=== PATIENT | male | born 1970 | race Caucasian/White ===

== ENCOUNTER 2023-12-25 18:37 | Emergency (ER) | payer MEDICAID ==
[~2023-12-25] VITALS: Ht 177.8 cm; Wt 95.5 kg
[2023-12-25 20:28] VITALS: BP 136/88; PULSE 107; TEMP 97.4; O2SAT 97
[2023-12-25 20:36] VITALS: RESP 16
[2023-12-26] MEDS ORDERED: CYCL-1 PO (16:40)
[2023-12-26] MEDS ORDERED: IBUP-1984 PO (16:40)
== END 2023-12-25 21:19 | disposition home or self-care (01) ==
LOC: ER 18:38
DX: S80.211A Abrasion, right knee, initial encounter (principal); M25.561 Pain in right knee; F12.90 Cannabis use, unspecified, uncomplicated; Z88.1 Allergy status to other antibiotic agents; V49.88XA Car occupant (driver) (passenger) injured in other specified transport accidents, initial encounter; Y93.89 Activity, other specified; Y92.89 Other specified places as the place of occurrence of the external cause; Y99.8 Other external cause status
CPT/HCPCS: 73564; 99283

== ENCOUNTER 2023-12-26 15:29 | Emergency (ER) | payer OTHER, MEDICAID ==
[~2023-12-26] VITALS: Ht 177.8 cm; Wt 80.7 kg
[2023-12-26 15:40] VITALS: TEMP 97.8
[2023-12-26] MEDS ORDERED: IBUP-1984 PO (16:40)
[2023-12-26] MEDS ORDERED: CYCL-1 PO (16:40)
[2023-12-26] MEDS: ketorolac tromethamine 15mg/ml inj. IM ONE (16:41)
[2023-12-26] MEDS: cyclobenzaprine 10mg tablet PO ONE (16:42)
[2023-12-26 16:51] VITALS: BP 133/74; PULSE 68; RESP 18; O2SAT 98
== END 2023-12-26 16:53 | disposition home or self-care (01) ==
LOC: ER 15:30
DX: M54.50 Low back pain, unspecified (principal); F12.90 Cannabis use, unspecified, uncomplicated; Z88.1 Allergy status to other antibiotic agents; Z79.1 Long term (current) use of non-steroidal anti-inflammatories (NSAID); Z79.899 Other long term (current) drug therapy; V89.2XXA Person injured in unspecified motor-vehicle accident, traffic, initial encounter; Y93.89 Activity, other specified; Y92.89 Other specified places as the place of occurrence of the external cause; Y99.8 Other external cause status
CPT/HCPCS: 96372; 99283; J1885

== ENCOUNTER 2024-01-30 12:11 | Emergency (ER) | payer MEDICAID ==
[~2024-01-30] VITALS: Ht 180.3 cm; Wt 91.0 kg
[~2024-01-30 12:11] MED LIST: CYCL-1 PO
[2024-01-30] MEDS ORDERED: ACYC-129 PO (14:31)
[2024-01-30] MEDS: acyclovir 200 MG capsule PO ONE (15:05)
[2024-01-30 15:09] VITALS: BP 134/78; PULSE 78; RESP 16; TEMP 97.9; O2SAT 97
== END 2024-01-30 15:10 | disposition home or self-care (01) ==
LOC: ER 12:11
DX: B02.8 Zoster with other complications (principal); F12.90 Cannabis use, unspecified, uncomplicated; Z88.1 Allergy status to other antibiotic agents; Z79.899 Other long term (current) drug therapy; Z72.89 Other problems related to lifestyle
CPT/HCPCS: 99283

== ENCOUNTER 2024-04-20 20:48 | Emergency (ER) | payer MEDICAID ==
[~2024-04-20] VITALS: Ht 177.8 cm; Wt 98.5 kg
[2024-04-20 21:37] LABS: BASOPHILS % (AUTO) 0.4 % (0-1); EOSINOPHILS # (AUTO) 0.1 X10'3 (0-0.9); EOSINOPHILS % (AUTO) 1.4 % (0-6); HEMATOCRIT 41.5 % (42.0-52.0); HEMOGLOBIN 13.8 g/dl (14.0-17.9); LYMPHOCYTES # (AUTO) 1.7 X10'3 (1.1-4.8); MEAN CORPUSCULAR HGB CONC 33.2 g/dL (33.0-36.5); MEAN CORPUSCULAR VOLUME 90.4 FL (78-98); MEAN PLATELET VOLUME 7.4 FL (7.4-10.4); MONOCYTES # (AUTO) 0.6 X10'3 (0-0.9); MONOCYTES % (AUTO) 7.8 % (2-12); NEUTROPHILS # (AUTO) 5.8 X10'3 (1.8-7.7); NEUTROPHILS % (AUTO) 70.4 % (42-75); PLATELET COUNT 284 X10'3 (140-440); RED BLOOD COUNT 4.59 X10'6 (4.70-6.10); RED CELL DISTRIBUTION WIDTH 13.3 % (11.5-14.5); WHITE BLOOD COUNT 8.3 X10'3 (4.5-11.0)
[2024-04-20] MEDS: sulfamethoxazole/trimethoprim DS (800/160mg) tablet PO ONE (21:45)
[2024-04-20] MEDS: CefTRIAXone 1000mg IM Kit (w/lidocaine diluent) IM ONE (21:45)
[2024-04-20 21:46] LABS: ALBUMIN 3.8 G/DL (3.4-5.0); ANION GAP 7 (8-16); BLOOD UREA NITROGEN 19 MG/DL (7-18); BUN/CREATININE RATIO 15.6 (10.0-20.0); CALCIUM 8.9 MG/DL (8.5-10.1); CHLORIDE 106 MMOL/L (99-107); CREATININE 1.22 MG/DL (0.60-1.10); GLUCOSE 98 MG/DL (70-104); POTASSIUM 4.3 MMOL/L (3.5-5.1); SODIUM 140 MMOL/L (135-145); TOTAL CARBON DIOXIDE 27.3 MMOL/L (24-32); eCRCL 71 ML/MIN; eGFR 62 ML/MIN
[2024-04-20] MEDS ORDERED: SULF1TAB49 PO (21:46)
[2024-04-20] MEDS ORDERED: CEPH-585 PO (21:46)
[2024-04-20 22:01] VITALS: BP 132/95; PULSE 102; RESP 16; TEMP 99.1; O2SAT 96
[2024-04-21] MEDS ORDERED: LEVO-65 PO (00:56)
[2024-04-21] MEDS ORDERED: PRED20TA PO (00:56)
== END 2024-04-20 22:02 | disposition home or self-care (01) ==
LOC: ER 20:49
DX: L03.032 Cellulitis of left toe (principal); N40.0 Benign prostatic hyperplasia without lower urinary tract symptoms; F12.90 Cannabis use, unspecified, uncomplicated; Z88.1 Allergy status to other antibiotic agents; Z79.899 Other long term (current) drug therapy
CPT/HCPCS: 36415; 80048; 85025; 96372; 99283; J0696

== ENCOUNTER 2024-04-20 23:57 | Emergency (ER) | payer MEDICAID ==
[~2024-04-20] VITALS: Ht 177.8 cm; Wt 98.5 kg
[~2024-04-20 23:57] MED LIST changes: +CEPH-585 PO; +SULF1TAB49 PO
[2024-04-20 23:58] VITALS: TEMP 98.9
[2024-04-21] MEDS: diphenhydrAMINE 50 mg/ml inj IV ONE (00:14)
[2024-04-21] MEDS: dexamethasone sod phosphate 10mg/ml inj IV STA (00:19)
[2024-04-21] MEDS: famotidine/PF 10 mg/ml inj IV ONE (00:20)
[2024-04-21] MEDS: normal saline 1000ML IV soln IVB ONE (00:21)
[2024-04-21] MEDS ORDERED: LEVO-65 PO (00:56)
[2024-04-21] MEDS ORDERED: PRED20TA PO (00:56)
[2024-04-21 02:14] VITALS: BP 148/93; PULSE 97; RESP 18; O2SAT 99
== END 2024-04-21 02:16 | disposition home or self-care (01) ==
LOC: ER 23:57
DX: T78.40XA Allergy, unspecified, initial encounter (principal); F12.90 Cannabis use, unspecified, uncomplicated; N40.0 Benign prostatic hyperplasia without lower urinary tract symptoms; Z88.1 Allergy status to other antibiotic agents; Z79.2 Long term (current) use of antibiotics; Z79.899 Other long term (current) drug therapy; X58.XXXA Exposure to other specified factors, initial encounter
CPT/HCPCS: 96361; 96374; 96375; 99284; J1100; J1200; J3490; J7030

== ENCOUNTER 2024-07-23 11:56 | Emergency (ER) | payer MEDICAID ==
[~2024-07-23] VITALS: Ht 177.8 cm; Wt 92.5 kg
[~2024-07-23 11:56] MED LIST changes: -CEPH-585 PO; -SULF1TAB49 PO
[2024-07-23 12:11] VITALS: BP 145/85; PULSE 85; RESP 18; O2SAT 98
[2024-07-23] MEDS ORDERED: FLO0.4C PO (12:46)
[2024-07-23 13:07] VITALS: TEMP 97.8
== END 2024-07-23 13:18 | disposition home or self-care (01) ==
LOC: ER 11:57
DX: S62.633A Displaced fracture of distal phalanx of left middle finger, initial encounter for closed fracture (principal); F12.90 Cannabis use, unspecified, uncomplicated; Z88.1 Allergy status to other antibiotic agents; X58.XXXA Exposure to other specified factors, initial encounter; Y93.89 Activity, other specified; Y92.89 Other specified places as the place of occurrence of the external cause; Y99.8 Other external cause status
CPT/HCPCS: 29130; 73130; 99283

== ENCOUNTER 2025-03-03 17:50 | Emergency (ER) | payer MEDICAID ==
[~2025-03-03] VITALS: Ht 177.8 cm; Wt 96.0 kg
[~2025-03-03 17:50] MED LIST changes: +TAMS-55 PO
--- NOTE | 2025-03-03 20:13 | Physician Documentation ---
History of Present Illness ~ Chief Complaint: Bite-insect Stated Complaint: BUG BITE Time Seen by MD: 18:09 Primary Medical Doctor: Sameer DRISCOLL Patient is seen today with complaints of pain and warmth and swelling of his right elbow posteriorly. Patient states symptoms started few days ago and states he originally had a single lesion on his elbow possibly insect bite or so mething. Patient denies any fevers or chills or body aches currently. Patient has no other concern or complaint at this time. Tetanus within 5 years?: Yes Medication Reconciliation Allergies: Coded Allergies: doxycycline (Unverified Allergy, Intermediate, 03/03/25) Scheduled Cyclobenzaprine* (Cyclobenzaprine*), 1 TAB PO Q8H Tamsulosin Hcl* (Flomax*), 1 CAP PO DAILY Past Medical History Past Medical History: BPH Past Surgical History: no surgical history Alcohol Use: Occasionally Drug Use: marijuana Lives In: Home Review of Systems Constitutional: Denies: chills, fever, weakness Eyes: Denies: pain, blurred vision ENT: Denies: ear pain, nose pain, throat pain, mouth pain Respiratory: Denies: cough, shortness of breath Cardiovascular: Denies: chest pain, palpitations Gastrointestinal: Denies: abdominal pain, nausea, vomiting Genitourinary: Denies: burning, dysuria Male Genitalia: Denies: penile discharge, testicular pain Neurological: Denies: headache, dizziness Musculoskeletal: Denies: pain, swelling Integumentary: Denies: rash, lesions Allergic/Immunologic: Denies: hives, itching Hematologic/Lymphatic: Denies: no symptoms reported Psychiatric: Denies: depression, anxiety Physical Exam Vital Signs: Temperature: 97.4, Source: Temporal, Heart Rate: 106, Respiratory Rate: 18, BP: 134/82, Pulse Oximetry: 96, Weight: 96.050 Physical Exam General: Awake and Alert, no acute distress. HEENT: Conjunctiva pink, Sclera clear, Mucus Membranes moist. Neck: Supple without masses and tenderness. Resp: Unlabored. Lungs clear to auscultation bilaterally. Heart: Regular Rate and rhythm, normal S1 and S2 without murmur, rub or gallop. Musculoskeletal: Patient on exam has warmth and erythema and swelling of the right olecranon bursa about the size of just larger than a golf ball. Patient is neurovascularly intact distally of the right upper extremity. Patient does have decreased range of motion due to swelling and pain of the olecranon bursa on the right side. Extremities: No cyanosis,clubbing or edema. Skin: Warm and Dry. Progress Results/Orders Results/Orders Vital Signs 03/03/25 17:58 Temp 97.4 Pulse 106 Resp 18 B/P (MAP) 134/82 Pulse Ox 96 Medical Decision Making Findings Patient is seen today with complaints of pain and warmth and swelling of his right elbow posteriorly. Patient states symptoms started few days ago and states he originally had a single lesion on his elbow possibly insect bite or something. Patient denies any fevers or chills or body aches currently. Patient has no other concern or complaint at this time. Patient was given dose of Bactrim DS in the ED tonight. Prescription of Bactrim DS one tab twice a day for 10 days sent to patient pharmacy. Patient will follow up with primary care in 2-5 days if no better as needed sooner. Return to ED with any worsening, concerning or changing symptoms. Departure Disposition: 01 HOME / SELF CARE / HOMELESS Impression: Primary Impression: Olecranon bursitis of right elbow Additional Impression: Infected olecranon bursa Qualified Codes: M71.121 - Other infective bursitis, right elbow Condition: Stable Additional Instructions: Patient was given dose of Bactrim DS in the ED tonight. Prescription of Bactrim DS one tab twice a day for 10 days sent to patient pharmacy. Patient will follow up with primary care in 2-5 days if no better as needed sooner. Return to ED with any worsening, concerning or changing symptoms. Referrals: NO PRIMARY CARE PROVIDER (PCP) Prescriptions Sulfamethoxazole/Trimethoprim (Bactrim Ds Tablet) 800 Mg-160 Mg Tablet 1 TAB PO Q12H for 10 Days, #20 TAB Prov: SHAMAR REAL 03/03/25 Signature Scribe Signature: No scribe Attestation: No scribe SHAMAR REAL Mar 03, 2025 20:13
[2025-03-03] MEDS ORDERED: SULF1TAB49 PO (20:18)
[2025-03-03] MEDS: sulfamethoxazole/trimethoprim DS (800/160mg) tablet PO STA (20:24)
[2025-03-03 20:26] VITALS: BP 132/80; PULSE 99; RESP 18; TEMP 98.9; O2SAT 99
[2025-03-04] MEDS ORDERED: CEPH-585 PO (02:25)
== END 2025-03-03 20:28 | disposition home or self-care (01) ==
LOC: ER 17:50
DX: M70.21 Olecranon bursitis, right elbow (principal); F12.90 Cannabis use, unspecified, uncomplicated; Z88.1 Allergy status to other antibiotic agents; Z88.8 Allergy status to other drugs, medicaments and biological substances
CPT/HCPCS: 99283

== ENCOUNTER 2025-03-04 01:16 | Emergency (ER) | payer MEDICAID ==
[~2025-03-04] VITALS: Ht 180.3 cm; Wt 93.2 kg
[~2025-03-04 01:16] MED LIST changes: +SULF1TAB49 PO
--- NOTE | 2025-03-04 01:33 | Physician Documentation ---
History of Present Illness ~ Chief Complaint: Allergic Reaction Stated Complaint: ALLERGIC REACTION Time Seen by MD: 01:30 Primary Medical Doctor: Sameer Mclain [facility] Patient presents to the emergency room with diffuse rash. He was seen earlier in the day and diagnosed with possible septic bursitis therefore antibiotics were initiated. He states he took the antibiotic at about 7:30 p.m. and then began developing his symptoms. No shortness of breath. He is not known to be allergic to Bactrim. He is allergic to doxycycline. Medication Reconciliation Allergies: Coded Allergies: doxycycline (Unverified Allergy, Intermediate, 03/03/25) sulfamethoxazole (Verified Allergy, Unknown, 03/04/25) trimethoprim (Verified Allergy, Unknown, 03/04/25) Scheduled Cyclobenzaprine* (Cyclobenzaprine*), 1 TAB PO Q8H Sulfamethoxazole/Trimethoprim (Bactrim Ds Tablet), 1 TAB PO Q12H Tamsulosin Hcl* (Flomax*), 1 CAP PO DAILY Past Medical History Past Medical History: BPH Past Surgical History: no surgical history Alcohol Use: Occasionally Drug Use: marijuana Lives In: Home Review of Systems ROS All review of systems negative except as per HPI Physical Exam Vital Signs: Temperature: 97.8, Heart Rate: 106, Respiratory Rate: 16, BP: 141/91, Pulse Oximetry: 96, Weight: 93.180 Oxygen Flow Rate: 0 Physical Exam General: Patient is awake, alert, oriented x4 in no acute distress Head: Normocephalic and atraumatic. Eyes: Conjunctival normal. EOMI. PERRL. ENT: Mucous membranes moist. Neck: Supple, trachea is midline. Chest: Clear to auscultation bilaterally without rales, rhonchi, or wheezes. There is no accessory muscle use or retractions. Cardiac: Tachycardic and regular without murmurs, gallops, or rubs. Skin: Diffuse hives noted. Progress Progress Note Patient reports that he is feeling way better. Results/Orders Results/Orders Completed Orders - HASMUKH BLANCO MD Diphenhydramine Inj (Benadryl Inj.) (03/04/25 01:30) Famotidine/Pf Iv Inj (Pepcid Iv Inj) (03/04/25 01:30) Methylprednisolone Sod Succ (Solumedrol (03/04/25 01:30) Normal Saline 1000ml (0.9% Sodium Chlori (03/04/25 01:30) Triamcinolone Acet 40mg/Ml Inj (Kenalog- (03/04/25 01:30) Medications Received in ER Medications (Trade) Dose Ordered Sig/Gricelda Route PRN Reason Start Time Stop Time Status Last Admin Dose Admin (Benadryl inj.) 50 mg ONCE ONCE IV 03/04/25 01:30 03/04/25 01:32 DC 03/04/25 01:56 50 MG (Pepcid IV inj) 40 mg ONCE ONCE IV 03/04/25 01:30 03/04/25 01:32 DC 03/04/25 01:59 40 MG (SoluMEDROL 125mg inj) 125 mg ONCE ONCE IV 03/04/25 01:30 03/04/25 01:32 DC 03/04/25 02:02 125 MG (0.9% sodium chloride (NS) 1000ml IV soln) 1,000 ml ONCE STAT IVB 03/04/25 01:30 03/04/25 01:32 DC 03/04/25 02:06 1,000 ML (Kenalog-40 inj) 40 mg ONCE ONCE IM 03/04/25 01:30 03/04/25 01:34 DC 03/04/25 01:54 40 MG Vital Signs 03/04/25 03/04/25 03/04/25 01:21 01:32 02:09 Temp 97.8 97.8 Pulse 106 73 Resp 16 16 20 B/P (MAP) 141/91 138/64 (88) Pulse Ox 96 99 O2 Flow Rate 0 0 Medical Decision Making Findings Patient presented to the emergency room reporting allergic reaction. Differentials include but are not limited to type 1 reaction, type 2 allergic reaction, drug rash, hives, poison oak. Given patient's history I do believe hi s rash outbreak is secondary to Bactrim administration. He has been monitored in the emergency room with improvement of symptoms. Patient's allergy list has been updated and we will change his antibiotics to Keflex. ER precautions discussed. Departure Disposition: HOME / SELF CARE / HOMELESS Impression: Primary Impression: Acute allergic reaction Condition: Improved Discharge Instructions: Drug Allergy Additional Instructions: Do not take Bactrim again. Referrals: NO PRIMARY CARE PROVIDER (PCP) Prescriptions Cephalexin*Monohydrate* (Keflex*) 500 Mg Capsule 1 CAP PO Q12H for 10 Days, #20 CAP Prov: HASMUKH BLANCO MD 03/04/25 Education Educated: Patient Educated regarding: diagnosis, treatment, need for follow up Signature Scribe Signature: No scribe Attestation: The note accurately reflects work and decisions made by me.Hasmukh Blanco MD 03/04/25 02:23 HASMUKH BLANCO MD Mar 04, 2025 01:33
[2025-03-04] MEDS: triamcinolone acetonide 40mg/ml inj IM ONE (01:54)
[2025-03-04] MEDS: famotidine/PF 10 mg/ml inj IV ONE (01:59)
[2025-03-04] MEDS: normal saline 1000ML IV soln IVB STA (02:06)
[2025-03-04 02:09] VITALS: BP 138/64; PULSE 73; RESP 20; TEMP 97.8; O2SAT 99
[2025-03-04] MEDS ORDERED: CEPH-585 PO (02:25)
== END 2025-03-04 03:05 | disposition home or self-care (01) ==
LOC: ER 01:17
DX: T78.49XA Other allergy, initial encounter (principal); F12.90 Cannabis use, unspecified, uncomplicated; Z88.1 Allergy status to other antibiotic agents; Z88.2 Allergy status to sulfonamides; Z79.899 Other long term (current) drug therapy; Z72.89 Other problems related to lifestyle; X58.XXXA Exposure to other specified factors, initial encounter
CPT/HCPCS: 96361; 96372; 96374; 96375; 99284; J1200; J2919; J3301; J3490; J7030